=== PATIENT | female | born 1950 | race Caucasian/White ===

== ENCOUNTER 2016-12-05 05:47 | Inpatient (IN) | payer MEDICARE ==
[2016-11-22 14:49] VITALS: BP 118/77
[~2016-12-05] VITALS: Ht 158.8 cm; Wt 74.4 kg
[~2016-12-05 05:47] MED LIST: CHOL4POW3 PO; CLON-365 PO; CYCL-259 PO; GABA300C10 PO; L. R1CAP PO; LACT1CAP35 PO; LEVO50TA5 PO; MAGNESIUM PO; OXYC-229 PO; VENL150T PO; VITAMIN B12 PO; [UNRECOGNIZED DRUG - CODE] PO
[2016-12-05] MEDS ORDERED: LIDOCAINE 1%, 2ML ONE (06:32)
[2016-12-05] MEDS ORDERED: KETOROLAC 60 MG/2 ML ONE (06:43)
[2016-12-05] MEDS ORDERED: ROPIvacaine/PF 0.2%, 20 ML ONE (06:43)
[2016-12-05] MEDS ORDERED: TRANEXAMIC ACID 100 MG/ML, 10ML ONE (06:43)
[2016-12-05] MEDS ORDERED: VANCOMYCIN 1,000 MG ONE (06:43)
[2016-12-05] MEDS ORDERED: BUPIVACAINE/PF 0.25% ONE (06:44)
[2016-12-05] MEDS ORDERED: EPINEPHRINE 1 MG/ML, 1ML ONE (06:44)
[2016-12-05] MEDS ORDERED: FENTANYL PF 250 MCG/5ML ONE (06:44)
[2016-12-05] MEDS ORDERED: KETAMINE 10 MG/ML, 20ML ONE ×2 (06:44→07:34)
[2016-12-05] MEDS ORDERED: BACITRACIN 50,000 UNIT ONE (06:44)
[2016-12-05] MEDS ORDERED: SODIUM CHLORIDE 0.9% 50 ML ONE (06:44)
[2016-12-05] MEDS ORDERED: MIDAZOLAM 1 MG/ML, 2ML ONE (06:44)
[2016-12-05] MEDS ORDERED: LACTATED RINGERS 1,000 ML IV SCH (07:10)
[2016-12-05] MEDS ORDERED: REMIFENTANIL 2 MG ONE (07:25)
[2016-12-05] MEDS ORDERED: BUPIVACAINE/PF-EPI 0.25% 1:200K ONE (07:25)
[2016-12-05] MEDS ORDERED: LIDOCAINE 1%, 2ML SQ PRN (07:30)
[2016-12-05] MEDS ORDERED: PROPOFOL 10 MG/ML, 20ML ONE (07:34)
[2016-12-05] MEDS ORDERED: SUCCINYLCHOLINE 20 MG/ML, 10ML ONE (07:34)
[2016-12-05] MEDS ORDERED: CEFAZOLIN 1,000 MG ONE (07:34)
[2016-12-05] MEDS ORDERED: PHENYLEPHRINE 10 MG/ML ONE (07:34)
[2016-12-05] MEDS ORDERED: ROCURONIUM 10 MG/ML ONE (07:34)
[2016-12-05] MEDS ORDERED: DEXAMETHASONE 4 MG/ML, 1ML ONE (07:34)
[2016-12-05] MEDS ORDERED: ONDANSETRON 2MG/ML, 2ML ONE (07:34)
[2016-12-05] MEDS ORDERED: EPHEDRINE 50 MG/ML, 1ML ONE (07:34)
[2016-12-05] MEDS ORDERED: GLYCOPYRROLATE 0.2MG/1ML ONE (07:34)
[2016-12-05] MEDS ORDERED: ALUMINUM/MAG/SIMETHICONE 30 ML UDC PO PRN (11:00)
[2016-12-05] MEDS ORDERED: DIPHENHYDRAMINE 50 MG CAPSULE PO PRN (11:00)
[2016-12-05] MEDS ORDERED: HYDROmorphone PCA 30 MG/30 ML IV PRN (11:00)
[2016-12-05] MEDS: ACETAMINOPHEN 650 MG/20.3 ML UDC PO SCH ×3 (11:00→23:04)
[2016-12-05] MEDS ORDERED: ONDANSETRON 4 MG TABLET PO PRN (11:00)
[2016-12-05] MEDS ORDERED: SENNA/DOCUSATE TABLET PO PRN (11:00)
[2016-12-05] MEDS: SCOPOLAMINE PATCH, 1.5MG PATCH.TD72 TD SCH (11:00)
[2016-12-05] MEDS ORDERED: BISACODYL 10 MG SUPP PR PRN (11:00)
[2016-12-05] MEDS ORDERED: MAGNESIUM HYDROXIDE 8%, 30ML UDC PO PRN (11:00)
[2016-12-05] MEDS ORDERED: OXYcodone 5 MG/5 ML ORAL.SOL UDC ONE (12:52)
[2016-12-05] MEDS ORDERED: HYDROmorphone 2 MG/ML, 1ML ONE (12:52)
[2016-12-05] MEDS ORDERED: TRANEXAMIC ACID 1,000 MG in SODIUM CHLORIDE 0.9% 100 ML IVPB ONE (13:00)
[2016-12-05] MEDS: HYDROmorphone 1 MG/ML, 1ML IV PRN ×4 (13:00→13:58)
[2016-12-05] MEDS ORDERED: HYDROmorphone PCA 30 MG/30 ML ONE (13:22)
[2016-12-05] MEDS ORDERED: OXYcodone 5 MG/5 ML ORAL.SOL UDC PO PRN (13:30)
[2016-12-05] MEDS ORDERED: ONDANSETRON 2MG/ML, 2ML IVPush PRN (13:30)
[2016-12-05] MEDS ORDERED: FENTANYL PF 100 MCG/2ML IV PRN (13:30)
[2016-12-05 15:33] LABS: HEMOGLOBIN 10.8 g/dL (11.7-16.4)
[2016-12-05] MEDS: GABAPENTIN 300 MG CAPSULE PO SCH ×2 (17:09→20:00)
[2016-12-05] MEDS: CEFAZOLIN PMX 1GM/50ML 50 ML IVPB SCH (17:09)
[2016-12-05] MEDS: D5%-0.45NACL+KCL 20MEQ 1,000 ML IV SCH (17:09)
[2016-12-05 19:25] VITALS: BP 95/63
[2016-12-05] MEDS: DOCUSATE 100 MG CAPSULE PO SCH (20:00)
[2016-12-05] MEDS: CALCIUM/VITAMIN D3 250-125 TABLET PO SCH (20:00)
[2016-12-05 23:53] VITALS: BP 95/58
[2016-12-06] MEDS: CEFAZOLIN PMX 1GM/50ML 50 ML IVPB SCH ×2 (00:49→09:15)
[2016-12-06] MEDS: D5%-0.45NACL+KCL 20MEQ 1,000 ML IV SCH ×3 (01:50→16:00)
[2016-12-06 01:55] VITALS: BP 94/52
[2016-12-06] MEDS: CYCLOBENZAPRINE 10 MG TABLET PO PRN ×2 (04:17→17:32)
[2016-12-06] MEDS: ACETAMINOPHEN 650 MG/20.3 ML UDC PO SCH (04:17)
[2016-12-06] MEDS ORDERED: DEXAMETHASONE 4 MG/ML, 1ML IVPush SCH (06:00)
[2016-12-06] MEDS: RIVAROXABAN 10 MG TABLET PO SCH (06:17)
[2016-12-06] MEDS: LEVOTHYROXINE 50 MCG TABLET PO SCH (06:17)
[2016-12-06 06:55] VITALS: BP 90/56
[2016-12-06] MEDS: DOCUSATE 100 MG CAPSULE PO SCH ×2 (09:00→21:21)
[2016-12-06] MEDS: GABAPENTIN 300 MG CAPSULE PO SCH ×3 (09:16→21:21)
[2016-12-06] MEDS: CALCIUM/VITAMIN D3 250-125 TABLET PO SCH ×2 (09:16→21:21)
[2016-12-06] MEDS: VENLAFAXINE 75 MG CAP ER PO SCH (09:16)
[2016-12-06] MEDS: MULTIVITAMINS/MINERALS TABLET PO SCH (09:16)
[2016-12-06] MEDS ORDERED: DIAZEPAM 5 MG TABLET PO PRN (09:30)
[2016-12-06] MEDS ORDERED: HYDROmorphone 1 MG/ML, 1ML IV PRN (09:30)
[2016-12-06 11:55] VITALS: BP 100/61
[2016-12-06] MEDS: CIPROFLOXACIN 750 MG TABLET PO SCH ×2 (13:46→21:21)
[2016-12-06] MEDS: DAPTOMYCIN IV SCH (16:03)
[2016-12-06] MEDS: SODIUM CHLORIDE 0.9% IV SCH (16:03)
[2016-12-06 16:20] VITALS: BP 91/55
[2016-12-06] MEDS: OXYcodone/APAP 10/325MG TABLET PO PRN ×2 (17:31→22:02)
[2016-12-06] MEDS: DIAZEPAM 5 MG TABLET PO PRN (23:42)
[2016-12-07 02:00] VITALS: BP 100/65
[2016-12-07] MEDS: CYCLOBENZAPRINE 10 MG TABLET PO PRN ×3 (02:04→22:35)
[2016-12-07] MEDS: OXYcodone/APAP 10/325MG TABLET PO PRN ×6 (02:04→22:35)
[2016-12-07] MEDS: LEVOTHYROXINE 50 MCG TABLET PO SCH (05:55)
[2016-12-07 07:51] VITALS: BP 90/53
[2016-12-07] MEDS: D5%-0.45NACL+KCL 20MEQ 1,000 ML IV SCH ×3 (08:00→16:00)
[2016-12-07] MEDS: CIPROFLOXACIN 750 MG TABLET PO SCH ×2 (08:59→21:49)
[2016-12-07] MEDS: DOCUSATE 100 MG CAPSULE PO SCH ×2 (08:59→21:49)
[2016-12-07] MEDS: MULTIVITAMINS/MINERALS TABLET PO SCH (09:00)
[2016-12-07] MEDS: VENLAFAXINE 75 MG CAP ER PO SCH (09:00)
[2016-12-07] MEDS: CALCIUM/VITAMIN D3 250-125 TABLET PO SCH ×2 (09:00→21:50)
[2016-12-07] MEDS: GABAPENTIN 300 MG CAPSULE PO SCH ×3 (09:00→21:49)
[2016-12-07] MEDS: RIVAROXABAN 10 MG TABLET PO SCH (09:01)
[2016-12-07 13:43] VITALS: BP 103/67
[2016-12-07] MEDS: SODIUM CHLORIDE 0.9% IV SCH (15:36)
[2016-12-07] MEDS: DAPTOMYCIN IV SCH (15:36)
[2016-12-07 18:31] VITALS: BP 112/51
[2016-12-08] MEDS: OXYcodone/APAP 10/325MG TABLET PO PRN ×5 (02:32→20:10)
[2016-12-08] MEDS: DIAZEPAM 5 MG TABLET PO PRN ×2 (02:50→20:10)
[2016-12-08 02:57] VITALS: BP 95/51
[2016-12-08] MEDS: LEVOTHYROXINE 50 MCG TABLET PO SCH (06:37)
[2016-12-08 07:14] VITALS: BP 109/66
[2016-12-08] MEDS: D5%-0.45NACL+KCL 20MEQ 1,000 ML IV SCH ×4 (08:00→21:19)
[2016-12-08] MEDS ORDERED: POLYETHYLENE GLYCOL 17 GM PACKET PO ONE ×2 (08:00→20:00)
[2016-12-08] MEDS: DOCUSATE 100 MG CAPSULE PO SCH ×2 (08:08→21:10)
[2016-12-08] MEDS: CIPROFLOXACIN 750 MG TABLET PO SCH ×2 (08:08→21:10)
[2016-12-08] MEDS: VENLAFAXINE 75 MG CAP ER PO SCH (08:09)
[2016-12-08] MEDS: MULTIVITAMINS/MINERALS TABLET PO SCH (08:10)
[2016-12-08] MEDS: RIVAROXABAN 10 MG TABLET PO SCH (08:11)
[2016-12-08] MEDS: GABAPENTIN 300 MG CAPSULE PO SCH ×3 (08:11→21:10)
[2016-12-08] MEDS: CALCIUM/VITAMIN D3 250-125 TABLET PO SCH ×2 (08:11→21:10)
[2016-12-08] MEDS: CYCLOBENZAPRINE 10 MG TABLET PO PRN ×2 (08:12→15:46)
[2016-12-08] MEDS: SCOPOLAMINE PATCH, 1.5MG PATCH.TD72 TD SCH (10:29)
[2016-12-08 12:27] VITALS: BP 130/70
[2016-12-08] MEDS: SODIUM CHLORIDE 0.9% IV SCH (15:46)
[2016-12-08] MEDS: DAPTOMYCIN IV SCH (15:46)
[2016-12-08 20:10] VITALS: BP 131/73
[2016-12-08] MEDS: LINEZOLID PMX 600MG/300ML 300 ML IV SCH (21:09)
[2016-12-09] MEDS: CYCLOBENZAPRINE 10 MG TABLET PO PRN ×4 (00:31→21:44)
[2016-12-09] MEDS: OXYcodone/APAP 10/325MG TABLET PO PRN ×6 (00:31→21:44)
[2016-12-09 01:44] VITALS: BP 120/79
[2016-12-09] MEDS: ONDANSETRON 2MG/ML, 2ML IV PRN (04:35)
[2016-12-09] MEDS: DIAZEPAM 5 MG TABLET PO PRN ×2 (04:38→13:19)
[2016-12-09] MEDS: D5%-0.45NACL+KCL 20MEQ 1,000 ML IV SCH ×2 (06:00→16:06)
[2016-12-09] MEDS: LEVOTHYROXINE 50 MCG TABLET PO SCH (06:33)
[2016-12-09 08:16] VITALS: BP 101/65
[2016-12-09] MEDS: DOCUSATE 100 MG CAPSULE PO SCH ×3 (08:52→21:00)
[2016-12-09] MEDS: GABAPENTIN 300 MG CAPSULE PO SCH ×3 (08:52→20:28)
[2016-12-09] MEDS: MULTIVITAMINS/MINERALS TABLET PO SCH (08:52)
[2016-12-09] MEDS: CALCIUM/VITAMIN D3 250-125 TABLET PO SCH ×2 (08:53→20:28)
[2016-12-09] MEDS: CIPROFLOXACIN 750 MG TABLET PO SCH ×2 (08:54→20:28)
[2016-12-09] MEDS: VENLAFAXINE 75 MG CAP ER PO SCH (08:56)
[2016-12-09] MEDS: RIVAROXABAN 10 MG TABLET PO SCH (09:01)
[2016-12-09] MEDS: LINEZOLID PMX 600MG/300ML 300 ML IV SCH ×2 (09:01→20:27)
[2016-12-09] MEDS ORDERED: RIVA10TA PO (12:37)
[2016-12-09] MEDS ORDERED: DOCU-30 PO (12:38)
[2016-12-09] MEDS ORDERED: DIAZ5TAB PO (12:38)
[2016-12-09] MEDS ORDERED: OXYC-229 PO (12:38)
[2016-12-09] MEDS ORDERED: ONDA4TAB7 PO (12:39)
[2016-12-09] MEDS ORDERED: MORP15TA39 PO (12:39)
[2016-12-09 13:07] VITALS: BP 105/65
[2016-12-09 21:51] VITALS: BP 111/67
[2016-12-10] MEDS: CYCLOBENZAPRINE 10 MG TABLET PO PRN ×3 (02:06→18:59)
[2016-12-10] MEDS: OXYcodone/APAP 10/325MG TABLET PO PRN ×6 (02:06→23:05)
[2016-12-10 02:10] VITALS: BP 116/72
[2016-12-10] MEDS: LEVOTHYROXINE 50 MCG TABLET PO SCH (05:57)
[2016-12-10] MEDS: DIAZEPAM 5 MG TABLET PO PRN ×3 (05:57→23:05)
[2016-12-10 07:12] VITALS: BP 91/55
[2016-12-10] MEDS: D5%-0.45NACL+KCL 20MEQ 1,000 ML IV SCH ×3 (08:36→16:02)
[2016-12-10] MEDS: DOCUSATE 100 MG CAPSULE PO SCH ×2 (08:39→21:00)
[2016-12-10] MEDS: CIPROFLOXACIN 750 MG TABLET PO SCH ×2 (08:39→21:40)
[2016-12-10] MEDS: GABAPENTIN 300 MG CAPSULE PO SCH ×3 (08:39→21:41)
[2016-12-10] MEDS: VENLAFAXINE 75 MG CAP ER PO SCH (08:40)
[2016-12-10] MEDS: MULTIVITAMINS/MINERALS TABLET PO SCH (08:40)
[2016-12-10] MEDS: RIVAROXABAN 10 MG TABLET PO SCH (08:40)
[2016-12-10] MEDS: CALCIUM/VITAMIN D3 250-125 TABLET PO SCH ×2 (08:40→21:41)
[2016-12-10 08:46] VITALS: BP 93/60
[2016-12-10] MEDS: LINEZOLID PMX 600MG/300ML 300 ML IV SCH (09:53)
[2016-12-10] MEDS: ONDANSETRON 2MG/ML, 2ML IV PRN (12:34)
[2016-12-10 13:19] VITALS: BP 137/79
[2016-12-10] MEDS ORDERED: DAPTOMYCIN 600 MG in SODIUM CHLORIDE 0.9% 100 ML IVPB SCH (16:30)
[2016-12-10 18:47] VITALS: BP 109/59
[2016-12-10 19:52] VITALS: BP 100/61
[2016-12-11 02:03] VITALS: BP 100/58
[2016-12-11] MEDS: OXYcodone/APAP 10/325MG TABLET PO PRN ×3 (03:19→13:03)
[2016-12-11] MEDS: CYCLOBENZAPRINE 10 MG TABLET PO PRN ×2 (03:19→13:03)
[2016-12-11] MEDS: LEVOTHYROXINE 50 MCG TABLET PO SCH (06:40)
[2016-12-11] MEDS: DIAZEPAM 5 MG TABLET PO PRN (06:40)
[2016-12-11 07:10] VITALS: BP 95/61
[2016-12-11] MEDS: GABAPENTIN 300 MG CAPSULE PO SCH (07:58)
[2016-12-11] MEDS: DOCUSATE 100 MG CAPSULE PO SCH (07:58)
[2016-12-11] MEDS: MULTIVITAMINS/MINERALS TABLET PO SCH (07:59)
[2016-12-11] MEDS: RIVAROXABAN 10 MG TABLET PO SCH (07:59)
[2016-12-11] MEDS: CALCIUM/VITAMIN D3 250-125 TABLET PO SCH (07:59)
[2016-12-11] MEDS: VENLAFAXINE 75 MG CAP ER PO SCH (07:59)
[2016-12-11] MEDS: CIPROFLOXACIN 750 MG TABLET PO SCH (07:59)
[2016-12-11] MEDS: D5%-0.45NACL+KCL 20MEQ 1,000 ML IV SCH ×2 (08:00)
[2016-12-11] MEDS: SCOPOLAMINE PATCH, 1.5MG PATCH.TD72 TD SCH (09:46)
[2016-12-11 13:31] VITALS: BP 114/69
== END 2016-12-11 14:21 | DRG 470 ==
LOC: ORIP 05:47 → 4NOR 14:52
PROVIDERS: ADMIT Orthopaedic Surgery Adult Reconstructive Orthopaedic Surgery; ATTEND Orthopaedic Surgery Adult Reconstructive Orthopaedic Surgery
PROC: 0SR90JZ Replacement of Right Hip Joint with Synthetic Substitute, Open Approach (ICD-10-PCS; principal; 2016-12-05 07:30)
PROC: 0KXK0Z6 Transfer Right Abdomen Muscle, Transverse Rectus Abdominis Myocutaneous Flap, Open Approach (ICD-10-PCS; 2016-12-05 07:30)
PROC: 02HV33Z Insertion of Infusion Device into Superior Vena Cava, Percutaneous Approach (ICD-10-PCS; 2016-12-06)
PROC: B5181ZA Fluoroscopy of Superior Vena Cava using Low Osmolar Contrast, Guidance (ICD-10-PCS; 2016-12-06)
PROC: B5181ZA Fluoroscopy of Superior Vena Cava using Low Osmolar Contrast, Guidance (ICD-10-PCS; 2016-12-08)
PROC: 02HV33Z Insertion of Infusion Device into Superior Vena Cava, Percutaneous Approach (ICD-10-PCS; 2016-12-08)
PROC: B548ZZA Ultrasonography of Superior Vena Cava, Guidance (ICD-10-PCS; 2016-12-08)
DX: T84.89XA Other specified complication of internal orthopedic prosthetic devices, implants and grafts, initial encounter (principal); D62 Acute posthemorrhagic anemia; L57.8 Other skin changes due to chronic exposure to nonionizing radiation; Y83.1 Surgical operation with implant of artificial internal device as the cause of abnormal reaction of the patient, or of later complication, without mention of misadventure at the time of the procedure; B95.8 Unspecified staphylococcus as the cause of diseases classified elsewhere; L90.8 Other atrophic disorders of skin; Z88.2 Allergy status to sulfonamides; Z92.3 Personal history of irradiation; Z88.1 Allergy status to other antibiotic agents; Z88.8 Allergy status to other drugs, medicaments and biological substances
CPT/HCPCS: 36415; 36569; 72170; 76937; 77001; 82550; 85014; 85018; 86850; 86900; 86923; 87070; 87075; 87176; 87205; C1713; C1729; J0171; J0690; J0878; J1100; J1170; J1885; J2020; J2250; J2405; J2704; J2795; J3010; J3370; J3490; Q0162; C1751; C1776; J0330; J2370; J3480; J7120

== ENCOUNTER → 2016-12-14 | Outpatient (CLI) | payer MEDICARE ==
[~2016-12-14] MED LIST changes: +DIAZ5TAB PO; +DOCU-30 PO; +MORP15TA39 PO; +ONDA4TAB7 PO; +RIVA10TA PO
== END | disposition home or self-care (01) ==
LOC: RAD 16:38
PROVIDERS: ATTEND Orthopaedic Surgery Adult Reconstructive Orthopaedic Surgery
DX: M79.661 Pain in right lower leg (principal); M25.451 Effusion, right hip; Z96.641 Presence of right artificial hip joint

== ENCOUNTER 2017-03-29 14:27 | Observation (INO) | payer MEDICARE ==
[~2017-03-29] VITALS: Ht 160 cm; Wt 72.1 kg
[~2017-03-29 14:27] MED LIST changes: -L. R1CAP PO; +LACT1CAP61 PO; +MORP-52 PO; -MORP15TA39 PO
[2017-03-29] MEDS ORDERED: SODIUM CHLORIDE FLUSH 10ML SYR IVF ONE (15:00)
[2017-03-29] MEDS ORDERED: PLEASE ENTER HEIGHT AND WEIGHT MC SCH (15:00)
[2017-03-29] MEDS ORDERED: SODIUM CHLORIDE 0.9% 1,000ML IVBOLUS ONE (15:00)
[2017-03-29 15:24] LABS: ASPARTATE AMINO TRANSFERASE 21 U/L (15-37); BLOOD UREA NITROGEN 7 mg/dL (7-18)
[2017-03-29 15:29] LABS: IS PT STATUS REG ER OR PRE ER? YES
[2017-03-29] MEDS ORDERED: CYCL-259 PO (16:50)
[2017-03-29] MEDS ORDERED: HYDROmorphone 1 MG/ML, 1ML ONE (16:55)
[2017-03-29] MEDS ORDERED: ENOXAPARIN 40 MG/0.4 ML ONE (16:56)
[2017-03-29] MEDS ORDERED: DIAZEPAM 5 MG TABLET PO PRN (17:00)
[2017-03-29] MEDS ORDERED: LABETALOL 5MG/ML, 20ML IVPush PRN (17:00)
[2017-03-29] MEDS ORDERED: GUAIFENESIN/DM 200-20MG, 10ML UDC PO PRN (17:00)
[2017-03-29] MEDS ORDERED: ENOXAPARIN 40 MG/0.4 ML SQ SCH (17:00)
[2017-03-29] MEDS ORDERED: HYDROmorphone 1 MG/ML, 1ML IVPush ONE (17:00)
[2017-03-29] MEDS ORDERED: ONDANSETRON 2MG/ML, 2ML IVPush PRN (17:00)
[2017-03-29] MEDS ORDERED: morphine SULFATE 10 MG/ML, 1ML IVPush PRN (17:00)
[2017-03-29] MEDS ORDERED: ONDANSETRON ODT 4 MG PO PRN (17:00)
[2017-03-29 17:29] LABS: IS PT STATUS REG ER OR PRE ER? YES
[2017-03-29 19:38] VITALS: BP 154/77
[2017-03-29] MEDS: HYDROcodone/APAP 5/325 TABLET PO PRN (20:02)
[2017-03-29] MEDS: CYANOCOBALAMIN 1,000 MCG TABLET PO SCH (21:00)
[2017-03-29] MEDS: CEFDINIR 300 MG CAPSULE PO SCH (21:08)
[2017-03-29] MEDS: CLINDAMYCIN 300 MG CAPSULE PO SCH (21:08)
[2017-03-29] MEDS: GABAPENTIN 300 MG CAPSULE PO SCH (21:09)
[2017-03-29] MEDS: CYCLOBENZAPRINE 10 MG TABLET PO PRN (22:10)
[2017-03-29 23:17] LABS: IS PT STATUS REG ER OR PRE ER? NO
[2017-03-30 02:11] VITALS: BP 120/70
[2017-03-30] MEDS: HYDROcodone/APAP 5/325 TABLET PO PRN ×4 (02:23→14:22)
[2017-03-30] MEDS ORDERED: PNEUMOCOCCAL 23 VACCINE IM-VACC ONE (03:00)
[2017-03-30 05:35] LABS: ASPARTATE AMINO TRANSFERASE 17 U/L (15-37); BLOOD UREA NITROGEN 10 mg/dL (7-18)
[2017-03-30] MEDS ORDERED: ASPIRIN 81 MG TABLET EC PO SCH (06:00)
[2017-03-30 06:54] VITALS: BP 121/77
[2017-03-30] MEDS ORDERED: VENLAFAXINE 75 MG CAP ER PO SCH (09:00)
[2017-03-30] MEDS ORDERED: IRON SUCROSE COMPLEX 100MG/5ML IV SCH (09:00)
[2017-03-30] MEDS ORDERED: LEVOTHYROXINE 50 MCG TABLET PO SCH (09:00)
[2017-03-30] MEDS ORDERED: [UNRECOGNIZED DRUG - REMARK] MC SCH (09:00)
[2017-03-30] MEDS: CEFDINIR 300 MG CAPSULE PO SCH (09:48)
[2017-03-30] MEDS: CYANOCOBALAMIN 1,000 MCG TABLET PO SCH (09:48)
[2017-03-30] MEDS: CLINDAMYCIN 300 MG CAPSULE PO SCH (09:48)
[2017-03-30] MEDS: GABAPENTIN 300 MG CAPSULE PO SCH (09:48)
[2017-03-30] MEDS ORDERED: REGADENOSON 0.4 MG/5 ML SYRINGE ONE (10:50)
[2017-03-30 12:48] VITALS: BP 126/74
[2017-03-30] MEDS ORDERED: CLIN300C93 PO (14:11)
[2017-03-30] MEDS ORDERED: CEFD300C37 PO (14:12)
[2017-03-30] MEDS: CYCLOBENZAPRINE 10 MG TABLET PO PRN (14:22)
[2017-04-02 16:07] LABS: BETA-2 GLYCOPROTEIN I IGA <9 (0-25)
== END 2017-03-30 16:45 | disposition home or self-care (01) ==
LOC: ED 15:51 → EDIP 16:33 → 5SO 18:58 → DCLOUNGE 03-30 15:42
PROVIDERS: ADMIT Hospitalist; ATTEND Hospitalist
DX: R07.89 Other chest pain (principal); K21.9 Gastro-esophageal reflux disease without esophagitis; M25.551 Pain in right hip; R71.8 Other abnormality of red blood cells; D50.9 Iron deficiency anemia, unspecified; I50.30 Unspecified diastolic (congestive) heart failure; F41.0 Panic disorder [episodic paroxysmal anxiety]; Z23 Encounter for immunization; Z96.649 Presence of unspecified artificial hip joint
CPT/HCPCS: 36415; 71010; 78452; 80053; 80061; 82607; 82728; 82746; 83036; 83540; 83550; 83690; 84439; 84443; 84484; 85025; 85610; 85730; 86146; 90471; 90732; 93005; 93017; 93306; 96361; 96372; 96374; 96375; 99285; A9502; C9898; G0378; J1170; J1650; J1756; J2785; J7030; G0008

== ENCOUNTER 2017-04-13 20:50 | Inpatient (IN) | payer MEDICARE ==
[~2017-04-13] VITALS: Ht 161.3 cm; Wt 76.2 kg
[~2017-04-13 20:50] MED LIST changes: +ASCO500T8 PO; +CEFD300C37 PO; +CLIN300C93 PO
[2017-04-13] MEDS ORDERED: CARI350T14 PO (21:07)
[2017-04-13 21:29] LABS: BLOOD UREA NITROGEN 8 mg/dL (7-18)
[2017-04-13] MEDS ORDERED: SODIUM CHLORIDE FLUSH 10ML SYR IVF ONE (21:30)
[2017-04-13 21:36] LABS: IS PT STATUS REG ER OR PRE ER? YES
[2017-04-13] MEDS ORDERED: ASPIRIN 81 MG TABLET CHEW ONE (22:21)
[2017-04-13] MEDS ORDERED: ASPIRIN 81 MG TABLET CHEW PO ONE (22:30)
[2017-04-13] MEDS ORDERED: OXYcodone/APAP 5/325MG TABLET ONE (23:47)
[2017-04-13] MEDS ORDERED: ONDANSETRON 2MG/ML, 2ML ONE (23:47)
[2017-04-13] MEDS: ONDANSETRON 2MG/ML, 2ML IVPush PRN (23:50)
[2017-04-14] MEDS ORDERED: OXYcodone/APAP 5/325MG TABLET PO ONE
[2017-04-14] MEDS ORDERED: POLYETHYLENE GLYCOL 17 GM PACKET PO PRN (00:30)
[2017-04-14] MEDS ORDERED: CHOLESTYRAMINE LIGHT 4GM PACKET PO SCH (00:30)
[2017-04-14] MEDS ORDERED: BISACODYL 10 MG SUPP PR PRN (00:30)
[2017-04-14] MEDS ORDERED: ONDANSETRON 2MG/ML, 2ML IVPush PRN (00:30)
[2017-04-14] MEDS ORDERED: ONDANSETRON 4 MG TABLET PO PRN (00:30)
[2017-04-14] MEDS ORDERED: DOCUSATE 100 MG CAPSULE PO PRN (00:30)
[2017-04-14] MEDS: CHOLESTYRAMINE MC SCH ×3 (01:30→16:01)
[2017-04-14] MEDS: HEPARIN 5,000 UNITS/ML, 1ML SQ SCH ×3 (01:39→16:34)
[2017-04-14 01:42] VITALS: BP 109/69
[2017-04-14 02:30] VITALS: BP 109/69
[2017-04-14 05:50] LABS: BLOOD UREA NITROGEN 8 mg/dL (7-18)
[2017-04-14 05:54] LABS: ASPARTATE AMINO TRANSFERASE 19 U/L (15-37)
[2017-04-14] MEDS: LEVOTHYROXINE 50 MCG TABLET PO SCH (06:14)
[2017-04-14 06:39] VITALS: BP 102/66
[2017-04-14] MEDS: FLORASTOR 250 MG CAPSULE PO SCH ×2 (08:45→20:39)
[2017-04-14] MEDS: CEFDINIR 300 MG CAPSULE PO SCH ×2 (08:46→20:40)
[2017-04-14] MEDS: VENLAFAXINE 75 MG CAP ER PO SCH (08:46)
[2017-04-14] MEDS: ASCORBIC ACID 500 MG TABLET PO SCH (08:46)
[2017-04-14] MEDS: MAGNESIUM OXIDE 400 MG TABLET PO SCH (08:46)
[2017-04-14] MEDS: CALCIUM/VITAMIN D3 250-125 TABLET PO SCH ×2 (08:46→20:40)
[2017-04-14] MEDS: FERROUS SULFATE 325 MG TABLET PO SCH ×2 (08:47→16:34)
[2017-04-14] MEDS: CYANOCOBALAMIN 1,000 MCG TABLET PO SCH ×2 (08:47→20:40)
[2017-04-14] MEDS: GABAPENTIN 300 MG CAPSULE PO SCH ×2 (08:47→20:39)
[2017-04-14] MEDS: CLINDAMYCIN 300 MG CAPSULE PO SCH ×2 (08:47→20:39)
[2017-04-14] MEDS: OXYcodone/APAP 10/325MG TABLET PO PRN ×4 (08:58→22:28)
[2017-04-14] MEDS: SODIUM CHLORIDE FLUSH 10ML SYR IVF SCH ×2 (08:58→20:38)
[2017-04-14] MEDS ORDERED: RHAMNOSUS GG PO SCH (09:00)
[2017-04-14] MEDS ORDERED: INULIN PO SCH (09:00)
[2017-04-14] MEDS: ONDANSETRON 2MG/ML, 2ML IVPush PRN (11:18)
[2017-04-14 12:30] VITALS: BP 115/70
[2017-04-14] MEDS: CARISOPRODOL 350 MG TABLET PO PRN (17:27)
[2017-04-14 20:00] VITALS: BP 112/55
[2017-04-15] MEDS: CHOLESTYRAMINE MC SCH (01:30)
[2017-04-15] MEDS: OXYcodone/APAP 10/325MG TABLET PO PRN ×3 (02:54→13:53)
[2017-04-15] MEDS: HEPARIN 5,000 UNITS/ML, 1ML SQ SCH ×2 (02:54→11:43)
[2017-04-15 03:36] VITALS: BP 98/62
[2017-04-15] MEDS: LEVOTHYROXINE 50 MCG TABLET PO SCH (05:47)
[2017-04-15] MEDS ORDERED: POLY17PO5 PO (07:34)
[2017-04-15] MEDS ORDERED: SIMV20TA PO (07:52)
[2017-04-15 08:03] VITALS: BP 131/82
[2017-04-15] MEDS: FERROUS SULFATE 325 MG TABLET PO SCH (08:25)
[2017-04-15] MEDS: CLINDAMYCIN 300 MG CAPSULE PO SCH (09:40)
[2017-04-15] MEDS: MAGNESIUM OXIDE 400 MG TABLET PO SCH (09:40)
[2017-04-15] MEDS: CARISOPRODOL 350 MG TABLET PO PRN (09:40)
[2017-04-15] MEDS: CYANOCOBALAMIN 1,000 MCG TABLET PO SCH (09:41)
[2017-04-15] MEDS: CEFDINIR 300 MG CAPSULE PO SCH (09:41)
[2017-04-15] MEDS: FLORASTOR 250 MG CAPSULE PO SCH (09:41)
[2017-04-15] MEDS: ASCORBIC ACID 500 MG TABLET PO SCH (09:41)
[2017-04-15] MEDS: GABAPENTIN 300 MG CAPSULE PO SCH (09:41)
[2017-04-15] MEDS: VENLAFAXINE 75 MG CAP ER PO SCH (09:41)
[2017-04-15] MEDS: SODIUM CHLORIDE FLUSH 10ML SYR IVF SCH (09:41)
[2017-04-15] MEDS: CALCIUM/VITAMIN D3 250-125 TABLET PO SCH (09:41)
[2017-04-15 13:00] VITALS: BP 131/82
== END 2017-04-15 15:15 | disposition home or self-care (01) | DRG 189 ==
LOC: ED 21:47 → EDIP 23:28 → 4NOR 04-14 01:00
DX: J96.01 Acute respiratory failure with hypoxia (principal); F11.20 Opioid dependence, uncomplicated; J45.909 Unspecified asthma, uncomplicated; M79.7 Fibromyalgia; F32.9 Major depressive disorder, single episode, unspecified; E61.1 Iron deficiency; Z96.641 Presence of right artificial hip joint; E03.9 Hypothyroidism, unspecified; L90.0 Lichen sclerosus et atrophicus; F12.90 Cannabis use, unspecified, uncomplicated; Z90.49 Acquired absence of other specified parts of digestive tract; Z90.710 Acquired absence of both cervix and uterus; Z90.89 Acquired absence of other organs; Z88.6 Allergy status to analgesic agent; Z88.1 Allergy status to other antibiotic agents; Z91.041 Radiographic dye allergy status; Z88.5 Allergy status to narcotic agent; Z88.2 Allergy status to sulfonamides; Z88.8 Allergy status to other drugs, medicaments and biological substances; Z91.048 Other nonmedicinal substance allergy status; Z83.3 Family history of diabetes mellitus; Z80.1 Family history of malignant neoplasm of trachea, bronchus and lung; Z80.41 Family history of malignant neoplasm of ovary
CPT/HCPCS: 36415; 71010; 71275; 80048; 80053; 81003; 82040; 82728; 83540; 83550; 83880; 84484; 85025; 85379; 85610; 85730; 93005; 99285; J1644; J2405